=== PATIENT | male | born 1960 | race Asian ===

== ENCOUNTER 2017-02-24 08:07 | Emergency (ER) | payer OTHER ==
[~2017-02-24] VITALS: Ht 188 cm; Wt 72.6 kg
[2017-02-24 08:23] VITALS: BP 109/76
[2017-02-24] MEDS ORDERED: Albuterol ud Inhalation HHN ONE ×2 (08:30→09:45)
[2017-02-24] MEDS ORDERED: PredniSONE 20mg tab ORAL ONE (08:30)
[2017-02-24] MEDS ORDERED: Ipratropium 0.02% Inh Soln 2.5ml UD HHN ONE (08:30)
[2017-02-24] MEDS ORDERED: Ketorolac 60mg Inj IM ONE (09:45)
--- NOTE | 2017-02-24 10:13 | Emergency Room Report ---
History of Present Illness General Chief Complaint: Asthma Source: Patient Present Illness HPI This patient has a history of asthma. He states over the past week he has noticed an asthma exacerbation. He states that it had temporarily improved but over the past day and and this morning his symptoms became much worse. He denies cough or congestion. Denies fever or chills. Denies nausea or vomiting. He has no other complaints. Allergies: Uncoded Allergies: FISH (Allergy, Unknown, 02/24/17) Patient History Past Medical History: see triage record, other - Chronic pain Past Surgical History: other - Bowel and rectal surgeries. Social History: Reports: alcohol use, drug use - THC, smoking Reviewed Nursing Documentation: PMH: Agreed, PSxH: Agreed Nursing Documentation-PMH Past Medical History: No History, Except For Hx Asthma: Yes Review of Systems All Other Systems: negative except mentioned in HPI Physical Exam Vital Signs Date Time Temp Pulse Resp B/P Pulse Ox O2 Delivery O2 Flow Rate FiO2 02/24/17 08:13 97.5 93 22 109/76 94 Room Air 02/24/17 08:54 2.0 28 Sp02 EP Interpretation: reviewed, normal General Appearance: alert, GCS 15, non-toxic, mild distress Head: normocephalic, atraumatic Eyes: bilateral eye PERRL, bilateral eye normal inspection ENT: hearing grossly normal, normal pharynx, no angioedema, normal voice Neck: full range of motion, supple/symm/no masses Respiratory: chest non-tender, accessory muscle use, speaking full sentences, wheezing, expiration, other - Tachypnea Cardiovascular #1: regular rate, rhythm, no edema Rectal: deferred Musculoskeletal: back normal, gait/station normal, normal range of motion, non- tender Neurologic: alert, oriented x3, responsive, motor strength/tone normal, sensory intact, speech normal Psychiatric: judgement/insight normal, memory normal, mood/affect normal, no suicidal/homicidal ideation Skin: normal color, no rash, warm/dry, well hydrated Medical Decision Making Diagnostic Impression: Primary Impression: Asthma attack ER Course This patient has a clinical presentation consistent with asthma exacerbation. Patient has a history of asthma and has wheezing on physical exam. The patient was given albuterol and Atrovent nebulizer treatments. The patient was also given prednisone orally. The patient had significant improvement in subjective shortness of breath. The patient's lung exam improved significantly. I will also treat the patient with a course of antibiotics as this has been shown to improve the course of an asthma exacerbation. The patient was given close return precautions and followup instructions. Chest X-Ray Diagnostic Results EP Interpretation: Yes Findings: no consolidation, no effusion, no pneumothorax, no acute cardiopulmonary disease Number of Views: 1 Last Vital Signs Date Time Temp Pulse Resp B/P Pulse Ox O2 Delivery O2 Flow Rate FiO2 02/24/17 10:00 82 16 99 Nasal Cannula 2.0 28 02/24/17 08:23 109/76 02/24/17 08:13 97.5 Status: improved Disposition: HOME, SELF-CARE Condition: Improved Referrals: [facility] (PCP) Patient Instructions: Asthma, Adult SYD REYNOLDS D.O. Feb 24, 2017 10:13
[2017-02-24 10:18] VITALS: BP 120/84
[2017-02-24] MEDS ORDERED: ALBUTEROL SULF8.5 GM INH (10:18)
[2017-02-24] MEDS ORDERED: PREDNISONE20 MG ORAL (10:18)
[2017-02-24] MEDS ORDERED: ATROVENT HFA12.9 GM IH (10:18)
[2017-02-24] MEDS ORDERED: ZITHROMAX250 MG ORAL (10:18)
--- NOTE | 2017-02-24 10:27 | Diagnostic Imaging Report ---
Indication: SOB Technique: One view of the chest Comparison: none Findings: Lungs and pleural spaces are clear. Heart size is normal. Aorta is elongated and tortuous. Impression: No acute process
== END 2017-02-24 10:26 | disposition home or self-care (01) ==
LOC: EMR 09:00
DX: J45.901 Unspecified asthma with (acute) exacerbation (principal); F17.210 Nicotine dependence, cigarettes, uncomplicated; F12.10 Cannabis abuse, uncomplicated; Z91.013 Allergy to seafood
CPT/HCPCS: 71010; 94640; 94664; 96372; 99283

== ENCOUNTER 2017-03-13 23:11 | Emergency (ER) | payer OTHER ==
[~2017-03-13] VITALS: Ht 188 cm; Wt 72.6 kg
[~2017-03-13 23:11] MED LIST: ALBUTEROL SULF8.5 GM INH; ATROVENT HFA12.9 GM IH; PREDNISONE20 MG ORAL; ZITHROMAX250 MG ORAL
[2017-03-13 23:28] VITALS: BP 132/90
[2017-03-13] MEDS ORDERED: Albuterol ud Inhalation HHN ONE (23:30)
[2017-03-13] MEDS ORDERED: PredniSONE 20mg tab ORAL ONE (23:30)
[2017-03-13] MEDS ORDERED: Ipratropium 0.02% Inh Soln 2.5ml UD HHN ONE (23:30)
[2017-03-14] MEDS ORDERED: ALBUTEROL SULF8.5 GM INH (00:21)
[2017-03-14] MEDS ORDERED: DULERA 100 MCG/13 GM INH (00:21)
[2017-03-14] MEDS ORDERED: IBUPROFEN600 MG ORAL (00:21)
[2017-03-14] MEDS ORDERED: PREDNISONE20 MG ORAL (00:21)
--- NOTE | 2017-03-14 00:21 | Emergency Room Report ---
History of Present Illness General Chief Complaint: Dyspnea/Respdistress Source: Patient Present Illness HPI Is a 57-year-old male with history of asthma. Not well controlled. He presents chief complaint of asthma exacerbation. Onset for last 5 hours. He said he is [place]. He thinks his retrograde. His inhaler is not helping. No nausea no vomiting. He said when he was on a long-acting inhaler with steroid it helped but hasn't been on it for a while. Denies any fever or chills. Denies any nausea vomiting. Allergies: Uncoded Allergies: FISH (Allergy, Unknown, 02/24/17) Patient History Past Medical History: see triage record, old chart reviewed, asthma Past Surgical History: none Pertinent Family History: none Social History: Denies: smoking Immunizations: other Reviewed Nursing Documentation: PMH: Agreed, PSxH: Agreed Nursing Documentation-PMH Hx Cardiac Problems: Yes - HEART MURMUR Hx Asthma: Yes Review of Systems Eye: Denies: blurred vision, eye pain ENT: Denies: ear pain, nose congestion, throat swelling Respiratory: Reports: shortness of breath, wheezing, Denies: cough Cardiovascular: Denies: chest pain, palpitations Gastrointestinal: Denies: abdominal pain, diarrhea, nausea, vomiting Musculoskeletal: Denies: back pain, joint pain Skin: Denies: rash Neurological: Denies: headache, numbness Endocrine: Denies: increased thirst, increased urine Hematologic/Lymphatic: Denies: easy bruising All Other Systems: negative except mentioned in HPI Physical Exam Vital Signs Date Time Temp Pulse Resp B/P Pulse Ox O2 Delivery O2 Flow Rate FiO2 03/13/17 23:13 98.2 88 22 132/90 92 Room Air 03/13/17 23:25 2.0 28 vitals with mild hypoxia Sp02 EP Interpretation: reviewed, abnormal General Appearance: well appearing, alert, mild distress Head: normocephalic, atraumatic Eyes: bilateral eye EOMI, bilateral eye PERRL ENT: hearing grossly normal, normal pharynx Neck: full range of motion, supple, no meningismus Respiratory: chest non-tender, wheezing Cardiovascular #1: regular rate, rhythm, no murmur Gastrointestinal: normal bowel sounds, non tender, no mass, no organomegaly, no bruit, non-distended Musculoskeletal: back normal, gait/station normal, normal range of motion Neurologic: alert, oriented x3 Psychiatric: mood/affect normal Skin: warm/dry Medical Decision Making Diagnostic Impression: Primary Impression: Asthma exacerbation ER Course Patient with asthma exacerbation. Better after treatment. We'll discharge home. Notice of ACS, PE, pneumonia to name a few. Last Vital Signs Date Time Temp Pulse Resp B/P Pulse Ox O2 Delivery O2 Flow Rate FiO2 03/13/17 23:36 94 20 99 Nasal Cannula 2.0 28 03/13/17 23:28 98.2 132/90 Status: improved Disposition: HOME, SELF-CARE Condition: Stable Scripts Mometasone/Formoterol (DULERA 100 MCG/5 MCG INHALER) 13 Gm Hfa.aer.ad 2 PUFFS INH EVERY 12 HOURS, #1 UNIT Prov: MAE MCGUIRE M.D. 03/14/17 Prednisone* (PREDNISONE*) 20 Mg Tablet 60 MG ORAL DAILY, #12 TAB Prov: MAE MCGUIRE M.D. 03/14/17 Ibuprofen* (MOTRIN*) 600 Mg Tablet 600 MG ORAL THREE TIMES A DAY, #30 TAB 0 Refills Prov: MAE MCGUIRE M.D. 03/14/17 Albuterol Sulfate* (ALBUTEROL SULFATE MDI*) 8.5 Gm Hfa.aer.ad 2 PUFF INH Q4H Y for cough/wheezing, #1 EA 0 Refills Prov: MAE MCGUIRE M.D. 03/14/17 Additional Instructions: Followup with your DrFarhana in 7 days. Return if symptom worsen. MAE MCGUIRE M.D. Mar 14, 2017 00:21
[2017-03-14] MEDS ORDERED: Albuterol ud Inhalation HHN ONE (00:30)
[2017-03-14 01:01] VITALS: BP_SYST 120; BP_SYST 132; BP_DIAS 76; BP_DIAS 90
== END 2017-03-14 01:01 | disposition home or self-care (01) ==
LOC: EMR 23:55
DX: J45.901 Unspecified asthma with (acute) exacerbation (principal); Z59.0 Homelessness
CPT/HCPCS: 94640; 94664; 99284